=== PATIENT | female | born 1990 | race Caucasian/White ===

== ENCOUNTER 2017-02-24 16:38 | Emergency (ER) | payer OTHER ==
[~2017-02-24] VITALS: Ht 162.6 cm; Wt 58.1 kg
--- NOTE | 2017-02-24 16:57 | NUR ---
Dr Lutz at the bedside for eval and exam.
--- NOTE | 2017-02-24 17:14 | NUR ---
Patient discharged to home in stable conditon. Written and verbal after care instructions given. Patient verbalizes understanding of instructions.
[2017-02-24 17:15] VITALS: BP 105/70
== END 2017-02-24 17:15 | disposition home or self-care (01) ==
LOC: ER 16:38
DX: B35.9 Dermatophytosis, unspecified (principal)
CPT/HCPCS: A4663